=== PATIENT | male | born 1970 | race Caucasian/White ===

== ENCOUNTER 2025-05-25 18:44 | Emergency (ER) | payer SELFPAY ==
[2025-05-25 19:25] LABS: BASOPHILS ABSOLUTE AUTO 0.05 K/uL (0.00-0.20); BASOPHILS PERCENT AUTO 0.6 % (0.0-2.0); EOSINOPHILS ABSOLUTE AUTO 0.33 K/uL (0.00-0.50); EOSINOPHILS PERCENT AUTO 4.2 % (0.0-5.0); IMMATURE GRAN ABSOLUTE AUTO 0.02 10^3/uL (0.00-0.04); IMMATURE GRAN PERCENT AUTO 0.3 % (0.0-0.4); LYMPHOCYTES ABSOLUTE AUTO 2.14 K/uL (0.50-3.50); LYMPHOCYTES PERCENT AUTO 27.0 % (10.0-50.0); MONOCYTES ABSOLUTE AUTO 0.62 K/uL (0.00-1.00); MONOCYTES PERCENT AUTO 7.8 % (2.0-14.0); NEUTROPHILS ABSOLUTE AUTO 4.78 K/uL (1.40-7.00); NEUTROPHILS PERCENT AUTO 60.1 % (45.0-80.0); PLATELET COUNT,PLT 375 K/uL (150-350); RED BLOOD CELL COUNT 4.30 M/uL (4.33-5.41); RED CELL DISTRIBUTION WIDTH 13.1 % (11.2-14.1); WHITE BLOOD CELL COUNT,WBC 7.9 K/uL (4.0-10.2)
[2025-05-25] MEDS: Ketorolac 15 MG/ML SDV IVPUSH ONE (19:28)
[2025-05-25] MEDS: Ondansetron 4 MG/2 ML SDV IVPUSH ONE (19:30)
[2025-05-25] MEDS: Sodium Chloride 0.9% 10 ML Syringe FLUSH PRN (19:30)
[2025-05-25 19:44] LABS: ALANINE AMINOTRANSFERASE,ALT 26 U/L (12-78); ASPARTATE AMNIOTRANSFERASE,AST 23 U/L (15-37); BILIRUBIN TOTAL 0.2 mg/dL (0.2-1.0); BLOOD UREA NITROGEN,BUN 19 mg/dL (7-18); CARBON DIOXIDE,CO2 25.0 mmol/L (21.0-32.0); CHLORIDE,CL 104 mmol/L (98-107); CREATININE 1.32 mg/dL (0.51-1.17); ESTIMATED GFR 65 mL/min (>=60); GLUCOSE RANDOM 62 mg/dL (70-99); POTASSIUM,K 3.7 mmol/L (3.5-5.1); PROTEIN TOTAL,TP 7.3 g/dL (6.4-8.2); SODIUM,NA 140 mmol/L (136-145)
[2025-05-25] MEDS ORDERED: Orphenadrine 60 MG/2 ML Inj IM ONE (21:07)
[2025-05-25] MEDS: Take Home: traMADol 50 MG, 4 Tab Pack PO ONE (21:24)
[2025-05-25] MEDS: Take Home: Orphenadrine 100 MG Tab.ER, 4 Tab Pack PO ONE (21:24)
[2025-05-25] MEDS: Orphenadrine 60 MG/2 ML Inj IV ONE (21:25)
== END 2025-05-25 21:45 | disposition home or self-care (01) ==
LOC: LL.ED 18:44
DX: S20.229A Contusion of unspecified back wall of thorax, initial encounter (principal); T59.811A Toxic effect of smoke, accidental (unintentional), initial encounter; W10.9XXA Fall (on) (from) unspecified stairs and steps, initial encounter
CPT/HCPCS: 36415; 71045; 72131; 80053; 83605; 85025; 96374; 96375; 96376; 99284; A9270; J1885; J2270; J2360; J2405; 99283